=== PATIENT | female | born 1980 | race Two or more races ===

== ENCOUNTER 2018-11-22 05:50 | Day surgery (SDC) | payer OTHER ==
[2018-11-18 14:08] LABS: Basophils # (auto) 0.1 uL; Eosinophils # (auto) 0.1 uL; Eosinophils % (auto) 0.8 % (0.0-7.0); Red Cell Distribution Width 17.7 % (11.8-14.3); White Blood Cell 10.1 10^3/uL (4.4-10.8)
[2018-11-18 14:10] LABS: Basophils % (auto) 0.5 % (0.0-2.0); Hemoglobin 11.2 g/dL (12.2-16.2); Mean Corpuscular Hemoglobin 21.6 pg (28.0-32.0); Mean Corpuscular Hgb Conc. 30.4 g/dL (32.0-36.0); Mean Corpuscular Volume 71.3 fL (80.0-100.0); Monocytes # (auto) 0.9 uL; Monocytes % (auto) 8.8 % (0.0-12.0); Neutrophils % (auto) 69.9 % (37.0-80.0); Platelet Count (auto) 355 10^3/uL (140-450)
[2018-11-18 14:25] LABS: INR 0.96 (0.9-1.15); Partial Thromboplastin Time 30.7 sec (23.64-32.05)
[2018-11-18 14:34] LABS: Urine Bacteria MOD /hpf (None Seen); Urine Blood Negative /uL (Negative); Urine Specific Gravity 1.007 (1.001-1.035); Urine WBC 2 /hpf (0 - 5)
[2018-11-18 14:39] LABS: Albumin 3.8 g/dL (3.4-5.0); Potassium 4.4 mmol/L (3.5-5.1)
[2018-11-18 14:42] LABS: BUN/Creatinine Ratio 16.2; Bilirubin, Total 0.3 mg/dL (0.2-1.0); Total Protein 8.4 g/dL (6.4-8.2)
[~2018-11-22] VITALS: Ht 167.6 cm; Wt 140.2 kg
[~2018-11-22 05:50] MED LIST: ALBUAER3 IN; IBUP800T24 PO
[2018-11-22] MEDS ORDERED: ceFAZolin 1GM/50ML 100 ML IV ONE (06:40)
[2018-11-22] MEDS ORDERED: MIDAZOLAM HCL 1MG/1ML-2 ML VIAL ONE (07:28)
[2018-11-22] MEDS ORDERED: fentaNYL CITRATE 100 MCG/2 ML VL ONE (07:29)
[2018-11-22] MEDS ORDERED: SUCCINYLCHOLINE CHLORIDE 20 MG/ML 10ML VIAL IV ONE (07:35)
[2018-11-22] MEDS ORDERED: BUPIVACAINE 0.25% INJ 50ML VIAL ONE (07:57)
[2018-11-22] MEDS ORDERED: BETAMETHASONE ACET (6MG/ML) 5ML VIAL ONE (07:57)
[2018-11-22] MEDS ORDERED: METOCLOPRAMIDE HCL 5MG/ml INJ 2ml VIAL ONE (08:25)
[2018-11-22] MEDS ORDERED: ONDANSETRON HCL 4 MG/2 ML VIAL ONE (08:26)
[2018-11-22] MEDS ORDERED: METOCLOPRAMIDE HCL 5MG/ml INJ 2ml VIAL IV PRN (08:30)
[2018-11-22] MEDS ORDERED: ONDANSETRON HCL 4 MG/2 ML VIAL IV PRN (08:30)
[2018-11-22] MEDS ORDERED: HYDROmorphone HCL 2 MG/ML VL IV PRN (08:35)
[2018-11-22] MEDS ORDERED: MIDAZOLAM HCL 1MG/1ML-2 ML VIAL IV ONE (08:35)
[2018-11-22] MEDS ORDERED: HYDROmorphone HCL 2 MG/ML VL ONE (08:43)
[2018-11-22 09:10] VITALS: BP 110/63
== END 2018-11-22 09:30 | disposition home or self-care (01) ==
LOC: SUR 05:50
PROVIDERS: ATTEND Orthopaedic Surgery Adult Reconstructive Orthopaedic Surgery
DX: S83.272A Complex tear of lateral meniscus, current injury, left knee, initial encounter (principal); M17.12 Unilateral primary osteoarthritis, left knee; E66.8 Other obesity; Z79.899 Other long term (current) drug therapy; Z87.09 Personal history of other diseases of the respiratory system; Z68.42 Body mass index [BMI] 45.0-49.9, adult; Z87.59 Personal history of other complications of pregnancy, childbirth and the puerperium; Z90.49 Acquired absence of other specified parts of digestive tract; W19.XXXA Unspecified fall, initial encounter; Y93.89 Activity, other specified; Y92.89 Other specified places as the place of occurrence of the external cause; Y99.8 Other external cause status
CPT/HCPCS: 29881; 36415; 80053; 81001; 84702; 85025; 85610; 85730; J0330; J0690; J0702; J1170; J2250; J2405; J2765; J3010; J3490